=== PATIENT | female | born 1985 | race Hispanic/Latino ===

== ENCOUNTER 2017-11-28 12:25 | Emergency (ER) | payer SELFPAY ==
[~2017-11-28 12:25] MED LIST: ACET1TAB12 PO; DOCU-116 PO; HYDR-4030 PO
[2017-11-28 12:50] LABS: APPEARANCE,URINE Clear (CLEAR); BILIRUBIN,URINE Negative (NEGATIVE); COLOR,URINE Yellow (YELLOW); GLUCOSE, URINE (UA) Negative (NEGATIVE); KETONES,URINE Negative (NEGATIVE); LEUKOCYTE ESTERASE ,URINE Negative (NEGATIVE); NITRATE,URINE Negative (NEGATIVE); OCCULT BLOOD,URINE Negative (NEGATIVE); PROTEIN,URINE Negative (NEGATIVE); UROBILINOGEN,URINE 0.2 mg/dL (0.2-1.0)
[2017-11-28] MEDS ORDERED: FENTANYL CITRATE PF 50 MCG/1 ML 2ML VIAL ONE (13:16)
[2017-11-28 13:57] LABS: BASOPHILS % (AUTO) 0.6 % (0.0-5.0); EOSINOPHILS % (AUTO) 1.4 % (0.0-8.0); HEMATOCRIT 38.3 % (36-48); LYMPHOCYTES % (AUTO) 21.2 % (21.0-51.0); MEAN CORPUSCULAR HEMOGLOBIN 26.9 pg (27.0-33.0); MEAN CORPUSCULAR HGB CONC 32.6 g/dL (32.0-36.0); MEAN CORPUSCULAR VOLUME 82.5 fL (79-99); NEUTROPHILS % (AUTO) 70.8 % (40.0-77.0); PLATELET COUNT (AUTO) 331 K/uL (130-400); RED BLOOD CELL COUNT(AUTO) 4.65 MIL/uL (4.00-5.50); RED CELL DISTRIBUTION WIDTH 14.9 % (11.0-15.5); WHITE BLOOD COUNT (AUTO) 9.8 K/uL (4.8-10.8)
[2017-11-28 14:05] LABS: CREATININE 0.6 mg/dL (0.5-1.5)
[2017-11-28] MEDS ORDERED: KETOROLAC TROMETHAMINE 30MG/ML ONE (15:38)
[2017-11-28] MEDS ORDERED: LIDOCAINE 5% TOPICAL PATCH TP ONE (16:20)
[2017-11-28] MEDS ORDERED: ORPHENADRINE CITRATE 30 MG/ML ML ONE (16:20)
== END 2017-11-28 16:43 | disposition home or self-care (01) ==
LOC: EDH 12:25
DX: R10.9 Unspecified abdominal pain (principal); R19.7 Diarrhea, unspecified; R30.0 Dysuria; Z79.899 Other long term (current) drug therapy
CPT/HCPCS: 36415; 74176; 80048; 81003; 81025; 85025; 96374; 96375; 99285; J1885; J2360; J3010

== ENCOUNTER 2018-08-05 17:30 | Emergency (ER) | payer OTHER ==
[2018-08-05] MEDS ORDERED: SODIUM CHLORIDE 0.9% 1000ML 1,000 ML IV ONE (18:58)
[2018-08-05] MEDS ORDERED: DIAZEPAM 5 MG TABLET ONE (18:59)
[2018-08-05] MEDS ORDERED: ACETAMINOPHEN EXTRA STRENGTH 500 MG TABLET ONE (18:59)
[2018-08-05 19:01] LABS: BASOPHILS % (AUTO) 0.6 % (0.0-5.0); EOSINOPHILS % (AUTO) 0.6 % (0.0-8.0); LYMPHOCYTES % (AUTO) 19.9 % (21.0-51.0); MEAN CORPUSCULAR HEMOGLOBIN 28.5 pg (27.0-33.0); MEAN CORPUSCULAR HGB CONC 33.2 g/dL (32.0-36.0); MEAN CORPUSCULAR VOLUME 85.9 fL (79-99); NEUTROPHILS % (AUTO) 72.9 % (40.0-77.0); PLATELET COUNT (AUTO) 339 K/uL (130-400); RED BLOOD CELL COUNT(AUTO) 4.43 MIL/uL (4.00-5.50); RED CELL DISTRIBUTION WIDTH 14.5 % (11.0-15.5); WHITE BLOOD COUNT (AUTO) 11.2 K/uL (4.8-10.8)
[2018-08-05 19:30] LABS: BILIRUBIN,URINE Negative (NEGATIVE); COLOR,URINE Yellow (YELLOW); GLUCOSE, URINE (UA) Negative (NEGATIVE); KETONES,URINE Trace mg/dL (NEGATIVE); LEUKOCYTE ESTERASE ,URINE Large (NEGATIVE); NITRATE,URINE Negative (NEGATIVE); OCCULT BLOOD,URINE Trace (NEGATIVE); PROTEIN,URINE Negative (NEGATIVE)
[2018-08-05 19:34] LABS: APPEARANCE,URINE Cloudy (CLEAR)
[2018-08-05 19:35] LABS: HCG,QUAL RESULT NEGATIVE (NEGATIVE)
[2018-08-05 19:37] LABS: CREATININE 0.7 mg/dL (0.5-1.5); POTASSIUM 3.4 mmol/L (3.5-5.1)
[2018-08-05 19:38] LABS: AMPHET/METH SCREEN,URINE NEGATIVE (NEGATIVE); BARBITURATE SCREEN, URINE NEGATIVE (NEGATIVE); BENZODIAZEPINES SCREEN,URINE NEGATIVE (NEGATIVE); CANNABINOID SCREEN,URINE NEGATIVE (NEGATIVE); COCAINE SCREEN,URINE NEGATIVE (NEGATIVE); OPIATE SCREEN,URINE NEGATIVE (NEGATIVE); PHENCYCLIDINE SCREEN,URINE NEGATIVE (NEGATIVE)
[2018-08-05 19:45] LABS: ALBUMIN 3.6 g/dL (3.5-5.0); BILIRUBIN,TOTAL 0.5 mg/dL (0.2-1.0); MAGNESIUM 1.9 mg/dL (1.80-2.40); TOTAL PROTEIN, SERUM 7.7 g/dL (6.0-8.3)
[2018-08-05 19:55] LABS: MUCUS,URINE Many LPF (None Seen)
[2018-08-05 19:56] LABS: BACTERIA,URINE Few /HPF (None Seen); RBC,URINE 0-1 /HPF (0-1)
[2018-08-05] MEDS ORDERED: CEFTRIAXONE SODIUM 1 GM ONE (20:27)
[2018-08-05] MEDS ORDERED: SODIUM CHLORIDE 0.9% 50 ML IV ONE (20:28)
[2018-08-05] MEDS ORDERED: KETOROLAC TROMETHAMINE 15MG/ML ONE (20:28)
[2018-08-05] MEDS ORDERED: DEXAMETHASONE SOD PHOSPHATE 10MG/ML 1ML VIAL ONE (22:45)
[2018-08-05] MEDS ORDERED: PROCHLORPERAZINE EDISYLATE 10 MG/2 ML VIAL ONE (22:45)
[2018-08-05] MEDS ORDERED: DiphenhydrAMINE HCL 50 MG/ML VIAL ONE (22:45)
== END 2018-08-06 00:05 | disposition home or self-care (01) ==
LOC: EDH 17:30
DX: F41.1 Generalized anxiety disorder (principal); G44.209 Tension-type headache, unspecified, not intractable; N39.0 Urinary tract infection, site not specified; R55 Syncope and collapse; R42 Dizziness and giddiness; I10 Essential (primary) hypertension
CPT/HCPCS: 36415; 70450; 80053; 80305; 81001; 81025; 83735; 85025; 93005; 96361; 96374; 96375; 99284; J0696; J0780; J1100; J1200; J1885; J7030

== ENCOUNTER → 2021-10-05 | Outpatient (CLI) | payer OTHER ==
[~2021-10-05] MED LIST changes: +GADOTERATE MEGLUMINE 10 MMOL/20 ML VIAL IV ONE
== END | disposition home or self-care (01) ==
LOC: RAH 12:01
PROVIDERS: ATTEND Orthopaedic Surgery
DX: S83.242A Other tear of medial meniscus, current injury, left knee, initial encounter (principal); S83.282A Other tear of lateral meniscus, current injury, left knee, initial encounter; D16.22 Benign neoplasm of long bones of left lower limb; X58.XXXA Exposure to other specified factors, initial encounter; Y93.89 Activity, other specified; Y92.89 Other specified places as the place of occurrence of the external cause; Y99.8 Other external cause status
CPT/HCPCS: 73723; A9575

== ENCOUNTER 2021-12-17 20:30 | Emergency (ER) | payer OTHER ==
[~2021-12-17] VITALS: Ht 167.6 cm; Wt 98.0 kg
[~2021-12-17 20:30] MED LIST changes: -GADOTERATE MEGLUMINE 10 MMOL/20 ML VIAL IV ONE
[2021-12-17] MEDS ORDERED: LORAZEPAM 2 MG/ML 1 ML VIAL IVP ONE (21:00)
[2021-12-17 21:11] LABS: BASOPHILS % (AUTO) 0.6 % (0.0-5.0); EOSINOPHILS % (AUTO) 1.1 % (0.0-8.0); HEMATOCRIT 41.3 % (36-48); LYMPHOCYTES % (AUTO) 24.6 % (21.0-51.0); MEAN CORPUSCULAR HEMOGLOBIN 28.7 pg (27.0-33.0); MEAN CORPUSCULAR HGB CONC 31.7 g/dL (32.0-36.0); MEAN CORPUSCULAR VOLUME 90.6 fL (79-99); MONOCYTES % (AUTO) 6.9 % (3.0-13.0); NEUTROPHILS % (AUTO) 66.2 % (40.0-77.0); PLATELET COUNT (AUTO) 356 K/uL (130-400); RED BLOOD CELL COUNT(AUTO) 4.56 MIL/uL (4.00-5.50); RED CELL DISTRIBUTION WIDTH 13.2 % (11.0-15.5); WHITE BLOOD COUNT (AUTO) 12.6 K/uL (4.8-10.8)
[2021-12-17 21:14] LABS: APPEARANCE,URINE Cloudy (CLEAR); BILIRUBIN,URINE Negative (NEGATIVE); COLOR,URINE Yellow (YELLOW); GLUCOSE, URINE (UA) Negative (NEGATIVE); KETONES,URINE Negative (NEGATIVE); LEUKOCYTE ESTERASE ,URINE Large (NEGATIVE); NITRATE,URINE Negative (NEGATIVE); OCCULT BLOOD,URINE Negative (NEGATIVE); PH,URINE 6.5 (5.0-8.0); PROTEIN,URINE Negative (NEGATIVE); UROBILINOGEN,URINE 0.2 mg/dL (0.2-1.0)
[2021-12-17 21:19] LABS: HCG,QUAL RESULT NEGATIVE (NEGATIVE)
[2021-12-17 21:22] LABS: CREATININE 0.7 mg/dL (0.5-1.5); POTASSIUM 3.2 mmol/L (3.5-5.1)
[2021-12-17 21:29] LABS: ALBUMIN 3.6 g/dL (3.5-5.0); BILIRUBIN,TOTAL 0.2 mg/dL (0.2-1.0); TOTAL PROTEIN, SERUM 7.8 g/dL (6.0-8.3)
[2021-12-17] MEDS ORDERED: POTASSIUM BICARB/CIT AC 25 MEQ TABLET.EFF PO ONE (21:30)
[2021-12-17 21:43] LABS: BACTERIA,URINE Few /HPF (None Seen); RBC,URINE None Seen /HPF (0-1)
[2021-12-17] MEDS ORDERED: CEPH500B PO (21:52)
[2021-12-17] MEDS ORDERED: CEFTRIAXONE 1G VIAL IVP ONE (22:00)
[2021-12-17 22:30] VITALS: BP 142/73
== END 2021-12-17 22:39 | disposition home or self-care (01) ==
LOC: EDH 20:30
DX: N39.0 Urinary tract infection, site not specified (principal); E87.6 Hypokalemia; F41.9 Anxiety disorder, unspecified; R07.89 Other chest pain; E66.9 Obesity, unspecified; M19.90 Unspecified osteoarthritis, unspecified site; J45.909 Unspecified asthma, uncomplicated; I10 Essential (primary) hypertension; Z68.34 Body mass index [BMI] 34.0-34.9, adult
CPT/HCPCS: 36415; 71045; 80053; 81001; 81025; 84484; 85025; 87088; 93005; 96374; 96375; 99285; J0696; J2060

== ENCOUNTER → 2022-05-20 | Outpatient (CLI) | payer OTHER ==
[~2022-05-20] MED LIST changes: +CEPH500B PO
== END | disposition home or self-care (01) ==
LOC: RAH 16:00
PROVIDERS: ATTEND Family Medicine
DX: M47.815 Spondylosis without myelopathy or radiculopathy, thoracolumbar region (principal); W01.0XXA Fall on same level from slipping, tripping and stumbling without subsequent striking against object, initial encounter
CPT/HCPCS: 72100; 73521; 73630

== ENCOUNTER 2022-12-29 23:11 | Emergency (ER) | payer BC, OTHER ==
[~2022-12-29] VITALS: Ht 167.6 cm; Wt 97.5 kg
[2022-12-30] MEDS ORDERED: 0.9%NACL 1000ML 2,000 ML IV ONE (01:00)
[2022-12-30] MEDS ORDERED: CEFTRIAXONE 1G VIAL IVPB ONE (01:00)
[2022-12-30] MEDS ORDERED: CEFTRIAXONE 1G VIAL ONE (01:09)
[2022-12-30] MEDS ORDERED: 0.9%NACL 1000ML 1,000 ML IV ONE (01:09)
[2022-12-30 01:17] LABS: BASOPHILS % (AUTO) 0.4 % (0.0-5.0); EOSINOPHILS % (AUTO) 0.6 % (0.0-8.0); HEMATOCRIT 41.5 % (36-48); LYMPHOCYTES % (AUTO) 16.2 % (21.0-51.0); MEAN CORPUSCULAR HEMOGLOBIN 28.9 pg (27.0-33.0); MEAN CORPUSCULAR HGB CONC 32.5 g/dL (32.0-36.0); MEAN CORPUSCULAR VOLUME 88.9 fL (79-99); NEUTROPHILS % (AUTO) 76.4 % (40.0-77.0); PLATELET COUNT (AUTO) 349 K/uL (130-400); RED BLOOD CELL COUNT(AUTO) 4.67 MIL/uL (4.00-5.50); RED CELL DISTRIBUTION WIDTH 13.3 % (11.0-15.5); WHITE BLOOD COUNT (AUTO) 14.2 K/uL (4.8-10.8)
[2022-12-30 01:30] LABS: CREATININE 0.6 mg/dL (0.5-1.5); POTASSIUM 3.8 mmol/L (3.5-5.1)
[2022-12-30 01:35] LABS: ALBUMIN 3.8 g/dL (3.5-5.0); TOTAL PROTEIN, SERUM 7.9 g/dL (6.0-8.3)
[2022-12-30] MEDS ORDERED: KETOROLAC 30MG VIAL (30MG/ML) ONE (01:53)
[2022-12-30] MEDS ORDERED: AMOX250L PO (01:55)
[2022-12-30] MEDS ORDERED: IBUP100O20 PO (01:55)
[2022-12-30] MEDS ORDERED: KETOROLAC 30MG VIAL (30MG/ML) IVP ONE (02:00)
[2022-12-30 02:10] VITALS: BP 132/78
== END 2022-12-30 02:18 | disposition home or self-care (01) ==
LOC: EDH 23:11
DX: K04.7 Periapical abscess without sinus (principal); I10 Essential (primary) hypertension; E78.00 Pure hypercholesterolemia, unspecified; J45.909 Unspecified asthma, uncomplicated; Z20.822 Contact with and (suspected) exposure to COVID-19
CPT/HCPCS: 99284; 87635; 80053; 85025; 87880; 87804 ×2; 83605; 36415; 96365; 96375; C9803; J7030; J0696; J1885

== ENCOUNTER 2023-03-01 18:31 | Emergency (ER) | payer BC ==
[~2023-03-01] VITALS: Ht 170.2 cm; Wt 97.5 kg
[~2023-03-01 18:31] MED LIST changes: -ACET1TAB12 PO; +AMOX250L PO; -CEPH500B PO; -DOCU-116 PO; +IBUP100O20 PO
[2023-03-01] MEDS ORDERED: ACET-2079 PO (21:04)
[2023-03-01] MEDS ORDERED: PENI500T2 PO (21:04)
[2023-03-01] MEDS ORDERED: ONDA4TAB10 PO (21:04)
[2023-03-01] MEDS ORDERED: IBUP-2070 PO (21:04)
[2023-03-01 21:21] VITALS: BP 142/87; PULSE 87; RESP 17; O2SAT 100
[2023-03-01] MEDS ORDERED: ONDANSETRON ODT 4MG TAB SL SCH (21:30)
[2023-03-01] MEDS ORDERED: HYDROCODONE/ACETAMINOPHEN 5/325 MG TAB PO SCH (21:30)
[2023-03-01] MEDS ORDERED: CEFTRIAXONE 1G VIAL IM SCH (21:30)
[2023-03-01] MEDS ORDERED: KETOROLAC 60 MG VIAL (30MG/ML) IM SCH (21:30)
== END 2023-03-01 22:03 | disposition home or self-care (01) ==
LOC: EDH 18:31
DX: K04.7 Periapical abscess without sinus (principal); K08.89 Other specified disorders of teeth and supporting structures; J45.909 Unspecified asthma, uncomplicated; E78.00 Pure hypercholesterolemia, unspecified; I10 Essential (primary) hypertension
CPT/HCPCS: 99284; 96372 ×2; J0696; J1885

== ENCOUNTER 2023-03-12 10:29 | Emergency (ER) | payer BC ==
[~2023-03-12] VITALS: Ht 167.6 cm; Wt 97.5 kg
[~2023-03-12 10:29] MED LIST changes: +ACET-2079 PO; +IBUP-2070 PO; +ONDA4TAB10 PO; +PENI500T2 PO
[2023-03-12 10:30] VITALS: BP 139/78; PULSE 92; RESP 18
[2023-03-12 11:00] LABS: RAPID GROUP A STREP negative (NEGATIVE)
[2023-03-12 11:09] LABS: INFLUENZA TYPE A Negative For Type A (NEGATIVE); INFLUENZA TYPE B Negative For Type B (NEGATIVE)
[2023-03-12 11:14] LABS: SARS-CoV-2, RNA, NAAT POSITIVE SARS CoV-2 (NEGATIVE)
[2023-03-12] MEDS ORDERED: NIRM1TAB5 PO (12:16)
== END 2023-03-12 12:37 | disposition home or self-care (01) ==
LOC: EDH 10:29
DX: U07.1 COVID-19 (principal); E78.00 Pure hypercholesterolemia, unspecified; I10 Essential (primary) hypertension; M19.90 Unspecified osteoarthritis, unspecified site; J45.909 Unspecified asthma, uncomplicated
CPT/HCPCS: 99283; 87635; 87880; 87804 ×2; C9803

== ENCOUNTER 2023-09-14 20:23 | Emergency (ER) | payer BC ==
[~2023-09-14] VITALS: Ht 170.2 cm; Wt 97.5 kg
[~2023-09-14 20:23] MED LIST changes: +NIRM1TAB5 PO
[2023-09-14 20:56] LABS: SARS-CoV-2, RNA, NAAT NEGATIVE SARS CoV-2 (NEGATIVE)
[2023-09-14 21:01] LABS: INFLUENZA TYPE A Negative For Type A (NEGATIVE); INFLUENZA TYPE B Negative For Type B (NEGATIVE)
[2023-09-15 00:47] LABS: APPEARANCE,URINE CLOUDY (CLEAR); BILIRUBIN,URINE NEGATIVE (NEGATIVE); COLOR,URINE LIGHT-YELLOW (YELLOW); GLUCOSE, URINE (UA) NEGATIVE (NEGATIVE); KETONES,URINE NEGATIVE (NEGATIVE); LEUKOCYTE ESTERASE ,URINE 500 Leu/uL (NEGATIVE); NITRATE,URINE NEGATIVE (NEGATIVE); OCCULT BLOOD,URINE LARGE (NEGATIVE); PROTEIN,URINE 20 mg/dL (NEGATIVE); UROBILINOGEN,URINE 0.2 mg/dL (0.2-1.0)
[2023-09-15 00:49] LABS: ADD UA MICROSCOPIC YES
[2023-09-15] MEDS ORDERED: LORA10TA7 PO (00:58)
[2023-09-15] MEDS ORDERED: SULF1TAB42 PO (00:58)
[2023-09-15 01:04] LABS: BACTERIA,URINE RARE /HPF (None Seen); MUCUS,URINE RARE LPF (None Seen); OTHER CASTS, URINE 3 /LPF (None Seen); RBC,URINE TNTC /HPF (0-1); SQUAMOUS EPITHELIAL CELL,UR MOD /HPF (0-2)
[2023-09-15 01:07] LABS: HCG,QUALITATIVE URINE NEGATIVE (NEGATIVE)
[2023-09-15 01:28] VITALS: BP 22/72; PULSE 80; RESP 2; O2SAT 98
[2023-09-15] MEDS: DEXAMETHASONE SOD PHOSPHATE 4 MG/ML 1ML VIAL IV ONE (01:28)
[2023-09-15] MEDS: LIDOCAINE HCL 2% VISCOUS 15 ML UDCUP PO ONE (01:28)
[2023-09-15] MEDS: MAG/ALUM/SIMETH 30 ML UDCUP PO ONE (01:28)
== END 2023-09-15 01:41 | disposition home or self-care (01) ==
LOC: EDH 20:23
DX: N39.0 Urinary tract infection, site not specified (principal); J02.8 Acute pharyngitis due to other specified organisms; B97.89 Other viral agents as the cause of diseases classified elsewhere; I10 Essential (primary) hypertension; E78.00 Pure hypercholesterolemia, unspecified; J45.909 Unspecified asthma, uncomplicated; M19.90 Unspecified osteoarthritis, unspecified site; Z20.822 Contact with and (suspected) exposure to COVID-19; Z79.899 Other long term (current) drug therapy; Z98.890 Other specified postprocedural states
CPT/HCPCS: 99284; 87635; 87088; 87880; 87804 ×2; 81001; 81025; 96374; J1100

== ENCOUNTER 2024-04-20 21:18 | Emergency (ER) | payer BC ==
[~2024-04-20] VITALS: Ht 170.2 cm; Wt 95.3 kg
[~2024-04-20 21:18] MED LIST changes: +LORA10TA7 PO; +ONDA-243 PO; -ONDA4TAB10 PO; +SULF1TAB42 PO
[2024-04-20 21:19] VITALS: BP 154/85; PULSE 74; RESP 16; TEMP 97
[2024-04-20 22:43] LABS: APPEARANCE,URINE CLEAR (CLEAR); BILIRUBIN,URINE NEGATIVE (NEGATIVE); COLOR,URINE COLORLESS (YELLOW); GLUCOSE, URINE (UA) NEGATIVE (NEGATIVE); KETONES,URINE NEGATIVE (NEGATIVE); LEUKOCYTE ESTERASE ,URINE NEGATIVE Leu/uL (NEGATIVE); NITRATE,URINE NEGATIVE (NEGATIVE); PROTEIN,URINE NEGATIVE (NEGATIVE); UROBILINOGEN,URINE 0.2 mg/dL (0.2-1.0)
[2024-04-20 22:44] LABS: ADD UA MICROSCOPIC YES
[2024-04-20 22:45] LABS: HCG,QUALITATIVE URINE NEGATIVE (NEGATIVE)
[2024-04-20 22:46] LABS: RBC,URINE 0-1 /HPF (0-1); SQUAMOUS EPITHELIAL CELL,UR RARE /HPF (0-2)
== END 2024-04-21 00:25 | disposition home or self-care (01) ==
LOC: EDH 21:18
DX: N93.8 Other specified abnormal uterine and vaginal bleeding (principal); E78.00 Pure hypercholesterolemia, unspecified; F41.9 Anxiety disorder, unspecified; I10 Essential (primary) hypertension; J45.909 Unspecified asthma, uncomplicated; M19.90 Unspecified osteoarthritis, unspecified site; Z98.890 Other specified postprocedural states; Z79.899 Other long term (current) drug therapy
CPT/HCPCS: 76856; 81001; 81025

== ENCOUNTER 2024-07-12 17:29 | Emergency (ER) | payer BC ==
[~2024-07-12] VITALS: Ht 167.6 cm; Wt 97.5 kg
[2024-07-12] MEDS ORDERED: KETO10TA2 PO (17:54)
[2024-07-12] MEDS ORDERED: CLIN-141 PO (17:54)
--- NOTE | 2024-07-12 17:57 | ERN ---
General Chief Complaint: Sore Throat Stated Complaint: THROAT PAIN Time Seen by MD: 17:33 Time Seen by Midlevel: 17:33 Source: patient History of Present Illness Initial Comments Patient is a 38-year-old female presenting to the emergency department with generalized body aches, low-grade fevers, and a sore throat that has been ongoing for the last three days. She was seen by her primary care doctor three days ago and started on cephalexin for suspected strep pharyngitis. She has been taking her cephalexin as prescribed but states her symptoms have only gotten worse. Initially, they were going to prescribe Augmentin but the pharmacy for whatever reason changes to cephalexin. Today she developed diarrhea and has had over eight episodes throughout the day. The diarrhea is described as watery in nature. No blood in the stool has been reported. Allergies: Coded Allergies: No Known Drug Allergies (Unverified Allergy, Unknown, 06/02/14) Home Meds Active Scripts Loratadine (Loratadine) 10 Mg Tablet, 10 MG PO DAILY, #7 TAB Prov:KADI QUILES 09/15/23 Sulfamethoxazole/Trimethoprim (Bactrim Ds Tablet) 800 Mg-160 Mg Tablet, 1 TAB PO BID for 7 Days, #14 TAB 0 Refills Prov:KADI QUILES 09/15/23 Nirmatrelvir/Ritonavir (Paxlovid 150-100 mg Pack (Eua)) 1 Each Tablet, 1 EACH PO BID for 5 Days, #1 PACK Take 300mg of Nirmatrelvir and 100mg or Ritonavir in the morning and also at night for 5 days. Prov:YARIEL MCCLURE MD 03/12/23 Acetaminophen with Codeine (Acetaminophen-Cod #3 Tablet) 1 Each Tablet, 1 EACH PO Q6HPRN for severe pain, #10 TAB 0 Refills Prov:STEPH HATFIELD NP 03/01/23 Ondansetron (Ondansetron Odt) 4 Mg Tab.rapdis, 4 MG PO Q6HPRN, #10 TAB 0 Refills Prov:STEPH HATFIELD NP 03/01/23 Ibuprofen (Ibuprofen) 600 Mg Tablet, 600 MG PO Q6H PRN for MODERATE PAIN (4-6), #15 TAB 0 Refills Prov:STEPH HATFIELD NP 03/01/23 Penicillin V Potassium (Penicillin V Potassium) 500 Mg Tablet, 500 MG PO QID for 7 Days, #28 TAB 0 Refills Prov:STEPH HATFIELD MELINA 03/01/23 Ibuprofen (Ibuprofen) 100 Mg/5 Ml Oral.susp, 800 MG PO TID PRN for PAIN, #600 ML Prov:BE CAMPBELL MD 12/30/22 Amoxicillin Trihydrate (Amoxicillin 250 mg/5 ml Susp) 250 Mg/5 Ml Susp, 500 MG PO TID, #300 ML Prov:BE CAMPBELL MD 12/30/22 Reported Medications Hydroxyzine Pamoate (Hydroxyzine Pamoate) 25 Mg Capsule, 25 MG PO TID PRN for ANXIETY, CAP 06/03/14 Past Medical History Past Medical History: Anxiety, Arthritis, Asthma, High Cholesterol, Hypertension, Other Medical History Other: VERTIGO Past Surgical History: Family History Family History: Negative Social History Social History: Negative Female( History) : 2 Para: 2 Aborts: 0 ROS Dictation CONSTITUTIONAL: Negative except for HPI HEAD/FACE: Negative except for HPI EENT: Negative except for HPI RESPIRATORY: Negative except for HPI GASTROINTESTINAL/ABDOMINAL: Negative except for HPI GENITOURINARY: Negative except for HPI MUSCULOSKELETAL: Negative except for HPI INTEGUMENTARY: Negative except for HPI NEUROLOGICAL/PSYCH: Negative except for HPI HEMATOLOGIC/LYMPHATIC: Negative except for HPI All Systems Negative, Except as noted above. 13 point review of systems assessed and all negative except for above. Physical Exam Physical Exam Dictation Vital Signs reviewed General Appearance: Alert, oriented x 3, no acute distress, well developed, nourished. Head and Face: non-traumatic. Eyes: PERRL, pink conjunctivas, eyelid no trauma, anterior chamber with arcus senilis. Ears: Pinnas intact and no signs of trauma or erythema ear canals clear and no discharge TM no erythema Nose: No discharge, no bleeding. Oropharynx: Mouth normal, tongue pink, Erythema to the posterior oropharynx, bilateral tonsillar exudates, strawberry tongue, uvula midline, no signs of peritonsillar abscess, mucous membrane moist Neck: Supple, non-tender, no thyromegaly, no masses, no JVD, no bruits Breast:Deferred Chest:No tenderness, no crepitus, no paradoxical movement, no retractions Lungs:Clear, well-ventilated, symmetric, no rales, no wheezing, no rhonchi, no stridor, good breath sounds bilaterally Heart: Regular rate, regular rhythm, no murmur, no gallops Vascular: no peripheral edema, Abdomen: Soft, positive bowel sounds, nondistended, no guarding, nontender, no rebound, no masses no hepatomegaly, no splenomegaly, no Delcid's sign, no hernias. Rectal: Deferred Genital: Deferred Neurological: Normal speech, motor function intact, sensory function intact Musculoskeletal: Neck nontender, full range of motion, back nontender, full range of motion, Extremities: nontender, full range of motion Skin: Color pink, dry, no turgor, no rash, no lacerations, no abrasions, no contusions. Lymphatic: Deferred MDM MDM: Patient is a 38-year-old female presenting to the emergency department with generalized body aches, low-grade fevers, and a sore throat that has been ongoing for the last three days. She was seen by her primary care doctor three days ago and started on cephalexin for suspected strep pharyngitis. She has been taking her cephalexin as prescribed but states her symptoms have only gotten worse. Initially, they were going to prescribe Augmentin but the pharmacy for whatever reason changes to cephalexin. Today she developed diarrhea and has had over eight episodes throughout the day. The diarrhea is described as watery in nature. No blood in the stool has been reported. On phy sical examination patient is in no acute respiratory distress. His ENT examination is remarkable for erythema to the posterior oropharynx with bilateral tonsillar exudates. There is a high clinical suspicion for strep pharyngitis. The patient was offered testing however she refused. At this time I feel comfortable with treating for strep. In the emergency department she was given dexamethasone, Rocephin, Toradol, and IV fluids for supportive management. She will be discharged home with a prescription for clindamycin for outpatient management. She is to follow up with your PCP in 2-3 days for repeat evaluation or return to the ER for any new or worsening symptoms. Differential diagnosis: Strep pharyngitis, peritonsillar abscess, viral syndrome, upper respiratory infection There are no social concerns with this patient. Prescription drug management Prescriptions will include: Clindamycin, Medrol pack Medical management and examination interpretation discussions were had by me with other qualified healthcare professionals as indicated for the patient's care. ED Course Orders Procedure Category Date Status Time Dexamethasone 4mg/Ml PHA 07/12/24 Transmitted 1ml Vial (Dexametha 18:00 Ketorolac PHA 07/12/24 Transmitted Tromethamine 15mg/Ml 18:00 Ceftriaxone 1g Vial PHA 07/12/24 Transmitted (Rocephine 1g Inj) 18:00 Ns 500ml Bolus PHA 07/12/24 Transmitted 18:00 Vital Signs Date Time Temp Pulse Resp B/P (MAP) Pulse Ox O2 Delivery O2 Flow Rate FiO2 07/12/24 17:33 98.2 83 18 151/84 98 DX & DISP Disposition: Discharge Departure Impression: Primary Impression: Strep pharyngitis Condition: Stable Scripts Ketorolac Tromethamine (Ketorolac Tromethamine) 10 Mg Tablet 1 TAB PO TID for pain for 5 Days, #15 TAB 0 Refills Prov: BEBA CHAMPION 07/12/24 Clindamycin HCl (Clindamycin HCl) 300 Mg Capsule 1 CAP PO QID for 10 Days, #40 CAP 0 Refills Prov: BEBA CHAMPION 07/12/24 Additional Instructions: Your physical examination is consistent with strep pharyngitis. I have given you a prescription for clindamycin and Toradol which should help with your symptoms over the next couple of days. Please follow up with your primary care doctor in 2-3 days for repeat e valuation. If you develop any new or worsening symptoms please report to the ER further evaluation. Referrals: KAREN BATES (PCP) Time of Disposition: 17:53 I have reviewed the case, and I agree with, Diagnosis and Plan I performed the substantive portion of the visit. I have reviewed and personally made and approve the management plan that is documented in the note by myself or the [facility]. I acknowledge for responsibility for the patient's management plan. BEBA CHAMPION Jul 12, 2024 17:57
[2024-07-12] MEDS: ketOROlac 15MG/ML VIAL (15MG/ML) IV ONE (18:21)
[2024-07-12] MEDS: cefTRIAXone 1G VIAL IVPB ONE (18:21)
[2024-07-12] MEDS: dexaMETHasone SOD PHOSPHATE 4 MG/ML 1ML VIAL IVP ONE (18:22)
[2024-07-12] MEDS: 0.9% NACL 500ML IV.SOLN 500 ML IV ONE (18:22)
[2024-07-12 18:39] VITALS: BP 113/80; PULSE 80; RESP 16; TEMP 98.3; O2SAT 98
== END 2024-07-12 18:52 | disposition home or self-care (01) ==
LOC: EDH 17:29
DX: J02.0 Streptococcal pharyngitis (principal); E78.00 Pure hypercholesterolemia, unspecified; F41.9 Anxiety disorder, unspecified; I10 Essential (primary) hypertension; J45.909 Unspecified asthma, uncomplicated; M19.90 Unspecified osteoarthritis, unspecified site
CPT/HCPCS: 99284; 96374; 96375; J1100; J7040; J0696; J1885